=== PATIENT | female | born 1965 ===

== ENCOUNTER 2022-07-06 07:30 | Day surgery (SDC) | payer BC ==
[~2022-07-06] VITALS: Ht 154.9 cm; Wt 97.2 kg
[2022-07-06] MEDS ORDERED: EUTHYROX112 MCG PO (07:38)
[2022-07-06] MEDS ORDERED: VITAMIN C (07:39)
[2022-07-06] MEDS ORDERED: PROBIOTIC (07:39)
[2022-07-06] MEDS ORDERED: LEXAPRO 10MG10 MG PO (07:39)
[2022-07-06] MEDS ORDERED: IRON PO (07:40)
[2022-07-06] MEDS ORDERED: VITAMIN D (07:40)
[2022-07-06 07:47] VITALS: BP 120/75; PULSE 72; TEMP 97.7
[2022-07-06 09:55] VITALS: BP 126/66; PULSE 74; TEMP 97.1
--- NOTE | 2022-07-06 10:07 | NUR ---
0955 - PT arrives from procedure and was assisted ambulating from cart to chair 2:1 w/ RN's. PT drowsy but oriented; denies pain/nausea. Monitors applied and vitals obtained. Snack and drink provided to PT and visitor; non-slip socks remain on. Verbal room report obtained. Call juarez within reach.
[2022-07-06 10:10] VITALS: BP 116/56; PULSE 65
--- NOTE | 2022-07-06 10:16 | NUR ---
1010 - VSS. PT has finished snack and drink, denies pain/nausea; expressed desire to be discharged. Call juarez remains within reach if needed.
[2022-07-06 10:25] VITALS: BP 118/64; PULSE 71
--- NOTE | 2022-07-06 10:29 | NUR ---
1025 - PT is changing into personal clothes w/ help of visitor; call juarez within reach.
--- NOTE | 2022-07-06 10:36 | NUR ---
1030 - VSS. IV discontinued. Catheter tip intact and pressure bandage applied; no redness or swelling noted. DC instructions, educational material reveiwed w/ PT who verbalized understanding and signed the related paperwork. Questions answered to PT satisfaction. PT refused RN assistance changing into personal clothes, call juarez remains within reach and visitor remains present.
--- NOTE | 2022-07-06 10:46 | NUR ---
1040 - PT dismissed from endo via wheelchair to PT entrence by Dona SAUNDERS; PT has DC packet and personal belongings, and was transferred into the care of Jaida who is driving private truck.
== END 2022-07-06 10:45 | disposition home or self-care (01) ==
LOC: SDCO 07:30
DX: D12.5 Benign neoplasm of sigmoid colon (principal); K63.5 Polyp of colon; K57.30 Diverticulosis of large intestine without perforation or abscess without bleeding; E66.01 Morbid (severe) obesity due to excess calories; G47.33 Obstructive sleep apnea (adult) (pediatric); K21.9 Gastro-esophageal reflux disease without esophagitis; Z87.891 Personal history of nicotine dependence; Z79.899 Other long term (current) drug therapy
CPT/HCPCS: J2704; J7030

== ENCOUNTER → 2023-03-20 | Outpatient (CLI) | payer BC ==
[~2023-03-20] MED LIST: EUTHYROX112 MCG PO; IRON PO; LEXAPRO 10MG10 MG PO; PROBIOTIC; VITAMIN C; VITAMIN D
== END ==
LOC: MC.RAD 08:47
DX: Z12.31 Encounter for screening mammogram for malignant neoplasm of breast (principal)

== ENCOUNTER → 2024-06-20 | Outpatient (CLI) | payer BC | LOC: MC.RAD 13:25 | DX: Z12.31 Encounter for screening mammogram for malignant neoplasm of breast (principal) ==